=== PATIENT | female | born 1970 | race Caucasian/White ===

== ENCOUNTER 2016-05-29 19:31 | Emergency (ER) | payer BC ==
--- NOTE | ~2016-05-29 | CT16 ---
[facility] A Service of [facility] & [facility] RADIOLOGY TEXT RESULTS PATIENT: ROSSI BARCLAY LOCATION: SED : 68 UNIT #: [id number] AGE: [address]: JORDY PRITCHARD PA-C SEX: F ORDER DR: [id number] [address] [address] [id number] E MR#: [id number] Acc #: [id number] NAME: ROSSI BARCLAY. : 1970 SEX: F STUDY DATE/TIME: 05/29/2016 20:39 UNIT: SED ROOM: STUDY DESCRIPTION: CT Angio Chest for PE Attending Physician: Jordy Pritchard Pa-C Ordering Physician: Physician Non-Staff Primary Care Physician: Primary Care Physician No MEDICAL IMAGING REPORT This report is preliminary unless electronic signature is present. EXAM CT angiography of the chest, PE protocol with IV contrast COMPARISON None. INDICATIONS 45-year-old female with dyspnea since tooth extraction [address] exam was performed with one or more of the following radiation dose reduction techniques: automatic exposure control, adjustment of mA and/or kV according to patient size, and iterative reconstruction. FINDINGS Axial CT imaging of the chest was performed during pulmonary arterial phase and postcontrast imaging after administration of 100 mL Isovue 370 intravenously. Coronal MIPs and sagittal reformats were constructed. There is nonspecific symmetric subcutaneous edema along the bilateral flanks and midline back, perhaps reflecting dependent edema. No evidence of adenopathy in the chest. Bones are within normal limits. Airways are patent. No pneumothorax, pleural effusion or acute airspace disease. No evidence of pulmonary embolus. Normal caliber of the pulmonary artery and thoracic aorta. Mild cardiomegaly without pericardial effusion. In the left upper lobe there are 2 areas of pleural-based ground-glass attenuation nonspecific, possibly reflecting pneumonitis or subsegmental atelectasis. IMPRESSION 1. No evidence of pulmonary embolus. Two areas of somewhat wedge-shaped ground-glass attenuation in the periphery of the left upper lobe which may reflex focal pneumonitis or subsegmental atelectasis. Clinical correlation recommended. There is no evidence of consolidative pneumonia or pleural effusion. STS. [facility] A Service of [facility] & [facility] RADIOLOGY TEXT RESULTS PATIENT: ROSSI BARCLAY LOCATION: SED : [birth year] UNIT #: [id number] AGE: [address]: JORDY PRITCHARD PA-C SEX: F ORDER DR: 2. Cardiomegaly without pulmonary edema. No significant findings in imaged upper abdomen. Dictated by... Serafin Valenzuela M.D. THIS IS AN ELECTRONICALLY VERIFIED REPORT Serafin Valenzuela M.D. at 06/01/2016 3:58 PM Emanuel TD: 05/30/2016 08:32 JOB #: [id number] MEDICAL IMAGING REPORT Page 1 of 1
--- NOTE | ~2016-05-29 | EKG ---
PATIENT: ROSSI BARCLAY UNIT #: [id number] Ventricular Rate: 104 BPM Atrial Rate: 104 BPM P-R Interval: 144 ms QRS Duration: 74 ms Q-T Interval: 350 ms QTC Calculation(Bezet): 460 ms P [place]: 68 degrees Calculated R [place]: 43 degrees Calculated T [place]: 46 degrees Diagnosis Line: Sinus tachycardia Diagnosis Line: Otherwise normal ECG Diagnosis Line: No previous ECGs available Diagnosis Line: Confirmed by LULA HONG MD ([id number]) on 05/31/2016 Diagnosis Line: 9:13:13 PM INTERPRETING MD: HAL HALL
[~2016-05-29 19:31] MED LIST: AUGMENTIN875 MG PO; IBUPROFEN800 MG PO; LORTAB 7.51 TAB 7.5/ PO; NO MEDICATIONS
[2016-05-29 20:20] LABS: BASOPHIL# 0.1 X10e3 (0-0.3); EOSINOPHIL# 0.4 X10e3 (0-0.7); EOSINOPHIL% 3.5 % (0.0-7.0); HEMATOCRIT 43.7 % (35.0-45.0); HEMOGLOBIN 14.8 gm/dL (12.0-16.0); LYMPHOCYTE% 25.6 % (17.0-45.0); MEAN CORPUSCULAR HEMOGLOBIN 29.4 PG (28-34); MEAN CORPUSCULAR HGB CONC 33.8 g/dL (30-36); MEAN PLATELET VOLUME 10.1 FL (6.5-11.5); MONOCYTE# 0.8 X10e3 (0-1.0); MONOCYTE% 6.4 % (3.0-12.0); NEUTROPHIL# 7.5 X10e3 (1.5-7.1); NEUTROPHIL% 63.5 % (40-75); PLATELET COUNT 219 X10e3 (140-420); RED BLOOD COUNT 5.03 X10e (3.90-5.30); RED CELL DISTRIBUTION WIDTH 13.8 % (11.0-15.5); WHITE BLOOD COUNT 11.9 X10e3 (4.0-10.5)
[2016-05-29 20:21] LABS: DIFF IND NO
[2016-05-29 20:35] LABS: BILIRUBIN,TOTAL 0.6 mg/dL (0.2-2.0); CALCIUM SERUM 9.2 mg/dL (8.4-10.2); CREATININE SERUM 0.8 mg/dL (0.6-1.4); GLOM FILT RATE Estimated 88.5 mL/min (>60); POTASSIUM 3.8 mmol/L (3.5-5.1); PROTEIN TOTAL SERUM 7.6 g/dL (6.0-8.3)
[2016-06-01] MEDS ORDERED: FLAGYL (16:56)
[2016-06-01] MEDS ORDERED: HCTZ PO (16:57)
[2016-06-01] MEDS ORDERED: AUGMENTIN PO (16:58)
== END 2016-05-29 22:34 | disposition home or self-care (01) ==
LOC: SED 19:31
PROVIDERS: Physician Assistant
DX: K08.89 Other specified disorders of teeth and supporting structures (principal); K12.1 Other forms of stomatitis; R00.0 Tachycardia, unspecified; I10 Essential (primary) hypertension; F17.210 Nicotine dependence, cigarettes, uncomplicated; Z88.8 Allergy status to other drugs, medicaments and biological substances
CPT/HCPCS: 36415; 71275; 80053; 85025; 93005; 94640; 99284; Q9967

== ENCOUNTER 2016-06-01 17:02 | Emergency (ER) | payer BC ==
[~2016-06-01 17:02] MED LIST changes: +AUGMENTIN PO; +FLAGYL; +HCTZ PO
[2016-06-01] MEDS ORDERED: CLEOCIN HCL300 M1 PO (17:25)
== END 2016-06-01 17:50 | disposition home or self-care (01) ==
LOC: SED 17:02
DX: K08.89 Other specified disorders of teeth and supporting structures (principal); R51 Headache; R11.10 Vomiting, unspecified; F17.210 Nicotine dependence, cigarettes, uncomplicated; Z88.8 Allergy status to other drugs, medicaments and biological substances; Z79.899 Other long term (current) drug therapy
CPT/HCPCS: 96372; 99283; J2550

== ENCOUNTER 2016-10-31 14:27 | Emergency (ER) | payer BC ==
[~2016-10-31] VITALS: Ht 157.5 cm; Wt 68.0 kg
--- NOTE | ~2016-10-31 | CR63 ---
[facility] A Service of [facility] & [facility] RADIOLOGY TEXT RESULTS PATIENT: ROSSI BARCLAY LOCATION: [facility] : [birth year] UNIT #: [id number] AGE: [address]: Matilda Robison SEX: F ORDER DR: [id number] [facility] [address] [place], [place] [address] [id number] E MR#: [id number] Acc #: [id number] NAME: ROSSI BARCLAY. : 1970 SEX: F STUDY DATE/TIME: 10/31/2016 16:29 UNIT: CFTX ROOM: STUDY DESCRIPTION: CR Chest 2 View Attending Physician: Matilda Robison Pa-C Ordering Physician: Matilda Robison Pa-C Primary Care Physician: No Primary Care Physician MEDICAL IMAGING REPORT This report is preliminary unless electronic signature is present EXAM Two-view chest, 10/31/2016 HISTORY A 46-year-old female with shortness of air, cough, and congestion for 2 days. COMPARISON STUDIES None. FINDINGS Two views of the chest demonstrate clear lungs. No pleural effusion or pneumothorax. Heart size and mediastinum are normal. Pulmonary vasculature normal. IMPRESSION No acute cardiopulmonary findings Dictated by... Antonio Mahmood M.D. THIS IS AN ELECTRONICALLY VERIFIED REPORT Antonio Mahmood M.D. at 11/01/2016 1:20 PM RAHEL/mechelle TD: 10/31/2016 20:43 JOB #: [id number] MEDICAL IMAGING REPORT Page 1 of 1 COPY
[~2016-10-31 14:27] MED LIST changes: +CLEOCIN HCL300 M1 PO
== END 2016-10-31 17:30 | disposition home or self-care (01) ==
LOC: CED 14:27 → CFTX 14:27 → CED 16:37 → CFTX 16:37
DX: J20.9 Acute bronchitis, unspecified (principal); Z90.710 Acquired absence of both cervix and uterus; Z88.8 Allergy status to other drugs, medicaments and biological substances
CPT/HCPCS: 71020; 94640; 99283

== ENCOUNTER 2016-11-06 16:11 | Emergency (ER) | payer BC ==
[~2016-11-06] VITALS: Ht 157.5 cm; Wt 72.6 kg
--- NOTE | ~2016-11-06 | CR72 ---
[facility] A Service of [facility] & [facility] RADIOLOGY TEXT RESULTS PATIENT: ROSSI BARCLAY LOCATION: [facility] : [birth year] UNIT #: [id number] AGE: [address]: Jose Ndiaye MD SEX: F ORDER DR: [id number] [facility] [address] [place], [place] [address] [id number] E MR#: [id number] Acc #: [id number] NAME: ROSSI BARCLAY : 1970 SEX: F STUDY DATE/TIME: 11/06/2016 19:00 UNIT: [facility] ROOM: STUDY DESCRIPTION: CR Chest Single View Portable Attending Physician: Vaibhav Ndiaye M.D. Ordering Physician: Ed Doc Gerardo Mercado Primary Care Physician: No Primary Care Physician MEDICAL IMAGING REPORT This report is preliminary unless electronic signature is present EXAM AP view of the chest. COMPARISON October 31, 2016 INDICATIONS 46-year-old female with dyspnea, cough and chest congestion for 1 week. FINDINGS Cardiomediastinal silhouette is within normal limits. No pneumothorax or pleural effusion. Increased bandlike opacity in the left lateral lung base may reflect atelectasis but pneumonia cannot be excluded. Lungs are otherwise clear. IMPRESSION Increased bandlike opacity in the left lung base reflecting atelectasis versus developing pneumonia. No pleural effusion. Dictated by... Serafin Valenzuela M.D. THIS IS AN ELECTRONICALLY VERIFIED REPORT Serafin Valenzuela M.D. at 11/12/2016 9:13 PM Gerardo TD: 11/07/2016 01:06 JOB #: [id number] MEDICAL IMAGING REPORT Page 1 of 1 COPY
--- NOTE | ~2016-11-06 | EKG ---
PATIENT: ROSSI BARCLAY UNIT #: [id number] Ventricular Rate: 97 BPM Atrial Rate: 97 BPM P-R Interval: 144 ms QRS Duration: 84 ms Q-T Interval: 386 ms QTC Calculation(Bezet): 490 ms P [place]: 79 degrees Calculated R [place]: 77 degrees Calculated T [place]: 44 degrees Diagnosis Line: Normal sinus rhythm Diagnosis Line: Possible Left atrial enlargement Diagnosis Line: Low voltage QRS Diagnosis Line: Prolonged QT Diagnosis Line: Abnormal ECG Diagnosis Line: When compared with ECG of 29-MAY-2016 22:20, Diagnosis Line: No significant change was found Diagnosis Line: Confirmed by CHE KHAN MD ([id number]) on Diagnosis Line: 11/10/2016 10:44:57 AM INTERPRETING MD: ERIN HALL
[2016-11-06 16:58] LABS: BASOPHIL# 0.1 X10e3 (0-0.3); BASOPHIL% 0.4 % (0-2.5); EOSINOPHIL# 0.5 X10e3 (0-0.7); EOSINOPHIL% 2.9 % (0.0-7.0); HEMATOCRIT 45.8 % (35.0-45.0); LYMPHOCYTE# 4.1 X10e3 (1.0-3.5); LYMPHOCYTE% 25.7 % (17.0-45.0); MEAN CORPUSCULAR HEMOGLOBIN 29.2 PG (28-34); MEAN CORPUSCULAR HGB CONC 32.8 g/dL (30-36); MEAN PLATELET VOLUME 9.6 FL (6.5-11.5); MONOCYTE# 1.1 X10e3 (0-1.0); MONOCYTE% 6.7 % (3.0-12.0); NEUTROPHIL# 10.2 X10e3 (1.5-7.1); NEUTROPHIL% 64.3 % (40-75); PLATELET COUNT 219 X10e3 (140-420); RED BLOOD COUNT 5.14 X10e (3.90-5.30); RED CELL DISTRIBUTION WIDTH 13.6 % (11.0-15.5); WHITE BLOOD COUNT 15.8 X10e3 (4.0-10.5)
[2016-11-06 17:01] LABS: DIFF IND YES
[2016-11-06 17:16] LABS: ALBUMIN SERUM 3.3 g/dL (3.5-5.0); BILIRUBIN, DIRECT 0.1 mg/dL (0.0-0.2); BILIRUBIN,INDIRECT 0.5 mg/dL (0.0-0.9); BILIRUBIN,TOTAL 0.6 mg/dL (0.2-2.0); BUN/CREATININE RATIO 13.63; CALCIUM SERUM 8.8 mg/dL (8.4-10.2); CREATININE SERUM 1.1 mg/dL (0.6-1.4); GLOM FILT RATE Estimated 59.8 mL/min (>60); POTASSIUM 3.7 mmol/L (3.5-5.1); PROTEIN TOTAL SERUM 6.3 g/dL (6.0-8.3)
[2016-11-06 17:49] LABS: PLATELET ESTIMATE NORMAL (NORMAL)
[2016-11-06 17:50] LABS: RBC NORMAL YES
== END 2016-11-06 21:09 | disposition home or self-care (01) ==
LOC: CED 16:11
PROVIDERS: Emergency Medicine
DX: R05 Cough (principal); R60.0 Localized edema; Z90.710 Acquired absence of both cervix and uterus; Z88.8 Allergy status to other drugs, medicaments and biological substances
CPT/HCPCS: 36415; 71010; 80048; 80076; 83880; 85025; 93005; 99285